=== PATIENT | female | born 1995 | race Caucasian/White ===

== ENCOUNTER 2017-06-08 08:51 | Emergency (ER) | payer OTHER ==
[~2017-06-08] VITALS: Ht 167.6 cm; Wt 118.9 kg
[~2017-06-08 08:51] MED LIST: DILAUDID2 MG PO; GLUCOPHAGE XR1000 MG PO; LOESTRIN1 EACH PO; MACROBID100 MG PO; ZOFRAN4 MG PO; ZYRTEC10 M2 PO
[2017-06-08] MEDS ORDERED: MOTRIN800 MG PO (12:58)
[2017-06-08] MEDS ORDERED: FLEXERIL10 MG PO (12:58)
[2017-06-08 13:28] VITALS: BP 134/69
== END 2017-06-08 13:41 | disposition home or self-care (01) ==
LOC: EME 08:51
DX: M54.6 Pain in thoracic spine (principal); M25.511 Pain in right shoulder; E11.9 Type 2 diabetes mellitus without complications; Z79.84 Long term (current) use of oral hypoglycemic drugs; Z88.0 Allergy status to penicillin
CPT/HCPCS: 71020; 99281; 99283

== ENCOUNTER 2017-11-06 10:05 | Emergency (ER) | payer OTHER ==
[~2017-11-06] VITALS: Ht 167.6 cm; Wt 117.2 kg
[~2017-11-06 10:05] MED LIST changes: +FLEXERIL10 MG PO; +MOTRIN800 MG PO
[2017-11-06 11:22] LABS: HEMATOCRIT 42.1 % (36.0-46.0); HEMOGLOBIN 14.7 G/DL (11.9-15.5); MCH 29.8 PG (29.0-34.0); MCHC 34.9 G/DL (30.0-36.0); MCV 85.4 FL (83-99); PLATELET COUNT 228 K/uL (156-360); RBC DIS.WIDTH-CV 12.2 % (11.8-14.6); RBC DIS.WIDTH-SD 38.1 % (39-53); RED BLOOD COUNT 4.93 M/uL (3.80-5.20)
[2017-11-06 11:30] LABS: ALBUMIN 4.8 g/dL (3.2-4.8); CHLORIDE 106 mEq/L (99-109); POTASSIUM 4.2 mEq/L (3.7-5.4); SODIUM 139 mEq/L (136-147)
[2017-11-06 11:33] LABS: GLUCOSE 140 mg/dL (70-99)
[2017-11-06 11:35] LABS: TOTAL BILIRUBIN 0.3 mg/dL (0.0-1.0)
[2017-11-06 11:36] LABS: ALKALINE PHOSPHATASE 72 IU/L (3-129); CREATININE 0.8 mg/dL (0.6-1.3); GFR ESTIMATE (CALCULATED) > 59 mL/min/
[2017-11-06 11:37] LABS: UREA NITROGEN (BUN) 14 mg/dL (9-23)
[2017-11-06 11:38] LABS: AST (GOT) 22 IU/L (2-34)
[2017-11-06 11:39] LABS: ALT (GPT) 39 IU/L (3-49)
[2017-11-06 11:46] LABS: QUANTITATIVE HCG < 4.0 MIU/ML
[2017-11-06 12:13] LABS: APPEARANCE CLOUDY ((CLEAR)); BILIRUBIN NEGATIVE; BLOOD NEGATIVE; COLOR YELLOW ((YELLOW)); GLUCOSE (STRIP) NEGATIVE; KETONES 5; LEUKOCYTES TRACE; NITRITE NEGATIVE; PROTEIN (STRIP) 100; SPECIFIC GRAVITY 1.032 (1.000-1.030); UROBILINOGEN 0.2 MG/DL (0.2-1.0)
[2017-11-06 12:25] LABS: BACTERIA 1+ /HPF; CALCIUM OXALATE CRYSTALS 1+ /HPF; EPITHELIAL CELLS RARE /HPF; MUCUS 3+ /LPF; RED BLOOD CELLS 0-5 /HPF (0-5); UCUL ADDED? NO; WHITE BLOOD CELLS 0-5 /HPF (0-5)
[2017-11-06 13:14] LABS: LIPASE 26 U/L (1.0-51.0)
[2017-11-06] MEDS ORDERED: ZOFRAN4 MG PO (14:49)
[2017-11-06 16:25] VITALS: BP 115/75
== END 2017-11-06 16:27 | disposition home or self-care (01) ==
LOC: EME 10:05
PROVIDERS: Emergency Medicine
DX: R11.2 Nausea with vomiting, unspecified (principal); R19.7 Diarrhea, unspecified; R10.31 Right lower quadrant pain; E11.9 Type 2 diabetes mellitus without complications; Z79.84 Long term (current) use of oral hypoglycemic drugs; Z88.0 Allergy status to penicillin
CPT/HCPCS: 74177; 80053; 81003; 82800; 83605; 83690; 83930; 84702; 85027; 87502; 99281; 99285; J2405; J3010